=== PATIENT | male | born 1960 | race African-American/Black ===

== ENCOUNTER 2018-07-03 18:01 | Emergency (ER) | payer OTHER ==
[~2018-07-03] VITALS: Ht 200.7 cm; Wt 102.1 kg
[~2018-07-03 18:01] MED LIST: NORCO 5-325 TA1 EACH PO
[2018-07-03] MEDS ORDERED: NAPROSYN500 MG PO (19:18)
[2018-07-03 20:08] VITALS: BP 130/93
== END 2018-07-03 20:10 ==
LOC: ER 18:01
DX: S63.681A Other sprain of right thumb, initial encounter (principal); S60.411A Abrasion of left index finger, initial encounter; F17.210 Nicotine dependence, cigarettes, uncomplicated; Y04.0XXA Assault by unarmed brawl or fight, initial encounter; Y92.89 Other specified places as the place of occurrence of the external cause; Y93.89 Activity, other specified; Y99.8 Other external cause status